=== PATIENT | male | born 1960 | race Caucasian/White ===

== ENCOUNTER → 2020-07-08 | Outpatient (CLI) | payer BC ==
--- NOTE | 2020-07-17 18:06 | EM ---
CARDIAC ELECTROPHYSIOLOGY REPORT DATE OF SERVICE: July 08, 2020. INDICATION: Cardiac arrhythmia. The patient was monitored for 7 days. The baseline rhythm appeared to be sinus mechanism. The patient did have multiple episodes of premature ventricular contractions. The patient also did have multiple episodes of sinus bradycardia with a heart rate in the 40s. He has 1 episode of ventricular bigeminy. No evidence of any sustained tachy or bradyarrhythmia noted. No evidence of any advanced AV block seen. The patient did not report any symptoms. CONCLUSION: 1. Sinus rhythm as a baseline mechanism. 2. Multiple premature ventricular contractions. 3. Multiple episodes of sinus bradycardia with heart rate in the 40s. 4. Multiple episodes of sinus tachycardia noted as well. 5. One episode of ventricular bigeminy. MMODL / IJN: [id number] /
== END | disposition home or self-care (01) ==
LOC: RADECHMAIN 12:20
PROVIDERS: ATTEND Family Medicine
DX: I49.3 Ventricular premature depolarization (principal); R00.0 Tachycardia, unspecified; R00.8 Other abnormalities of heart beat
CPT/HCPCS: 93270

== ENCOUNTER → 2021-09-26 | Outpatient (CLI) | payer BC ==
--- NOTE | 2021-09-26 11:06 | XR ---
EXAMINATION TYPE: XR chest 2V DATE OF EXAM: 09/26/2021 COMPARISON: 12/01/2014 INDICATION: Chest pain TECHNIQUE: Frontal and lateral views of the chest are obtained. FINDINGS: The heart size is normal. The pulmonary vasculature is normal. The lungs are clear. Follow-up can be performed as clinically indicated. IMPRESSION: 1. No acute pulmonary process.
== END | disposition home or self-care (01) ==
LOC: RADXRYALE 10:46
PROVIDERS: ATTEND Family Medicine
DX: R07.9 Chest pain, unspecified (principal); I10 Essential (primary) hypertension
CPT/HCPCS: 71046

== ENCOUNTER → 2022-01-16 | Outpatient (CLI) | payer BC ==
--- NOTE | 2022-01-17 22:34 | XR ---
EXAMINATION TYPE: XR lumbosacral spine min 4V DATE OF EXAM: 01/16/2022 CLINICAL HISTORY: Low back pain. TECHNIQUE: Frontal, lateral, and oblique images of the lumbar spine are obtained. COMPARISON: None FINDINGS: There are 6 lumbar type vertebral bodies identified. The lumbar spine shows dextroconvex scoliotic curvature centered at the labeled L3-L4 level. Vertebral body heights and disk space height s are within normal limits. The oblique images appear within normal limits. The overlying soft tis aaron appears unremarkable. IMPRESSION: As above.
== END | disposition home or self-care (01) ==
LOC: RADXRYALE 16:58
PROVIDERS: ATTEND Family Medicine
DX: M54.50 Low back pain, unspecified (principal)
CPT/HCPCS: 72110

== ENCOUNTER → 2022-06-30 | Outpatient (CLI) | payer BC ==
--- NOTE | 2022-06-30 15:48 | XR ---
EXAMINATION TYPE: XR foot complete RT DATE OF EXAM: 06/30/2022 CLINICAL HISTORY: pain TECHNIQUE: Frontal, lateral and oblique images of the right foot are obtained. COMPARISON: None. FINDINGS: There is no acute fracture/dislocation evident. The joint spaces appear within normal oakes its. The overlying soft tissue appears unremarkable. IMPRESSION: There is no acute fracture or dislocation. ICD 10 NO FRACTURE, INITIAL EVALUATION
== END | disposition home or self-care (01) ==
LOC: RADXRYALE 15:31
PROVIDERS: ATTEND Family Medicine
DX: M67.971 Unspecified disorder of synovium and tendon, right ankle and foot (principal); M79.671 Pain in right foot